=== PATIENT | male | born 1970 | race Caucasian/White ===

== ENCOUNTER → 2016-11-26 | Outpatient (CLI) | payer OTHER ==
[~2016-11-26] MED LIST: ASPI81TA28 PO; ATEN-173 PO; LISI-787 PO; OXYC1TAB3 PO; TRIA0.1O12 TOP
--- NOTE | 2016-11-26 10:17 | DIAGNOSTIC IMAGING REPORT ---
RIGHT MIDDLE FINGER 3 VIEWS HISTORY: Right third digit injury. RIGHT HAND 3RD DIGIT Right COMPARISON: None. FINDINGS: Soft tissue amputation at the distal tip of the right middle finger. No underlying fracture with the right middle finger. No radiopaque foreign bodies. IMPRESSION: Amputation of the distal soft tissues of the right middle finger without underlying fracture. Electronically signed by: Emanuel Santiago M.D. 11/26/2016 10:15 AM Dictated Date/Time: 11/26/2016 10:14 AM
== END | disposition home or self-care (01) ==
LOC: C.RAD1850 10:02
PROVIDERS: ATTEND Emergency Medicine
DX: S61.202A Unspecified open wound of right middle finger without damage to nail, initial encounter (principal); X58.XXXA Exposure to other specified factors, initial encounter

== ENCOUNTER → 2017-01-24 | Outpatient (CLI) | payer OTHER ==
[~2017-01-24] MED LIST changes: -OXYC1TAB3 PO
[2017-01-24 10:00] LABS: BLOOD UREA NITROGEN 11 mg/dl (7-18); BUN/CREATININE RATIO 11.3 (10-20)
== END | disposition home or self-care (01) ==
LOC: C.LAB 08:38
PROVIDERS: ATTEND Urology
DX: N28.1 Cyst of kidney, acquired (principal)

== ENCOUNTER → 2017-02-09 | Outpatient (CLI) | payer OTHER ==
[~2017-02-09] MED LIST changes: +GADAVIST IV PRN
--- NOTE | 2017-02-09 07:59 | DIAGNOSTIC IMAGING REPORT ---
MRI OF THE ABDOMEN WITH AND WITHOUT CONTRAST RENAL PROTOCOL CLINICAL HISTORY: Renal cyst. COMPARISON STUDY: CT of the abdomen and pelvis July 13, 2016 and IVP July 24, 2016. TECHNIQUE: Utilizing a 1.5 Jada magnet and dedicated coil, multiplanar, multiecho imaging of the abdomen was performed pre and postcontrast administration. Post contrast imaging was performed utilizing dynamic enhancement. Injection of 11.5 cc of Gadavist IV was uneventful. FINDINGS: Multiple T2 hyperintense nonenhancing left renal lesions measure up to 3.2 cm are consistent with cysts. These have a thin nearly imperceptible wall. There is no nodular enhancement. Mild scarring of the left kidney is noted. There are postsurgical findings involving the left renal pelvis. Mild dilatation of the left renal pelvis with urothelial thickening is unchanged. Sensitivity for detection of urothelial lesions is diminished on this exam. The right kidney is unremarkable with the exception of a 3 mm cyst within the midpole. There is no right hydronephrosis. There is fatty infiltration of the liver. The spleen, adrenal glands and pancreas are normal. There is no abdominal lymphadenopathy. Caliber and wall thickness of visualized small and large bowel are normal. IMPRESSION: 1. Several left renal cysts. No solid renal lesions. 2. Postsurgical findings of the left renal pelvis and proximal ureter. Stable mild dilatation of the left renal pelvis with mild urothelial thickening. No significant change since prior exam. 3. Fatty liver. Electronically signed by: Peter Greer M.D. 02/09/2017 7:57 AM Dictated Date/Time: 02/09/2017 7:47 AM
== END | disposition home or self-care (01) ==
LOC: C.MRI 05:42
PROVIDERS: ATTEND Urology
DX: N28.1 Cyst of kidney, acquired (principal); K76.0 Fatty (change of) liver, not elsewhere classified

== ENCOUNTER → 2018-01-02 | Outpatient (CLI) | payer OTHER ==
[~2018-01-02] MED LIST changes: -GADAVIST IV PRN
[2018-01-02 10:44] LABS: ALBUMIN 3.7 gm/dl (3.4-5.0); ALT/SGPT 46 U/L (12-78); BLOOD UREA NITROGEN 12 mg/dl (7-18); CALCIUM 8.6 mg/dl (8.5-10.1); CARBON DIOXIDE 28 mmol/L (21-32); CREATININE 0.99 mg/dl (0.60-1.40); GLUCOSE 192 mg/dl (70-99); POTASSIUM 3.9 mmol/L (3.5-5.1); SODIUM 134 mmol/L (136-145)
[2018-01-02 10:47] LABS: ALKALINE PHOSPHATASE 85 U/L (45-117); AST/SGOT 22 U/L (15-37); TOTAL PROTEIN 7.1 gm/dl (6.4-8.2)
[2018-01-02 10:56] LABS: HEMOGLOBIN A1C 9.6 % (4.5-5.6)
== END | disposition home or self-care (01) ==
LOC: C.LAB1850 08:33
PROVIDERS: ATTEND Internal Medicine
DX: Z00.00 Encounter for general adult medical examination without abnormal findings (principal); Z86.39 Personal history of other endocrine, nutritional and metabolic disease